=== PATIENT | male | born 1995 | race Two or more races ===

== ENCOUNTER 2020-12-07 00:03 | Emergency (ER) | payer SELFPAY ==
[~2020-12-07] VITALS: Ht 177.8 cm; Wt 82.0 kg
[2020-12-07] MEDS ORDERED: TETANUS, DIPHTHERIA, PERTUSSIS VAC/PF 0.5ML (>7YR OLD) IM ONE (01:00)
[2020-12-07 02:00] VITALS: BP 110/71
== END 2020-12-07 02:14 | disposition home or self-care (01) ==
LOC: ER 00:03
DX: S41.112A Laceration without foreign body of left upper arm, initial encounter (principal); S60.511A Abrasion of right hand, initial encounter; Y04.0XXA Assault by unarmed brawl or fight, initial encounter; Y07.499 Other family member, perpetrator of maltreatment and neglect; Y93.89 Activity, other specified; Y92.488 Other paved roadways as the place of occurrence of the external cause; F12.90 Cannabis use, unspecified, uncomplicated; F14.10 Cocaine abuse, uncomplicated; Z23 Encounter for immunization; R94.31 Abnormal electrocardiogram [ECG] [EKG]
CPT/HCPCS: 12002; 90471; 90715; 93005; 99283; Z7610